=== PATIENT | female | born 2000 | race Caucasian/White ===

== ENCOUNTER 2020-07-29 10:05 | Inpatient (IN) | payer BC, OTHER ==
[2020-07-29] MEDS ORDERED: BUTORPHANOL 1 MG/ML INJ IV PRN (15:46)
[2020-07-29] MEDS ORDERED: METHYLERGONOVINE 0.2MG/ML AMP IM PRN (15:46)
[2020-07-29] MEDS ORDERED: Ringers Lactate 1,000 ML IV PRN (15:46)
[2020-07-29] MEDS ORDERED: PROMETHAZINE INJ 25 MG/ML AMP IM PRN (15:46)
[2020-07-29] MEDS ORDERED: CARBOPROST TROME 250 MCG/ML IM PRN (15:46)
[2020-07-29] MEDS ORDERED: miSOPROStoL 100 MCG TAB VAG PRN ×2 (15:52→19:00)
--- OUTSIDE RECORDS SUMMARY | 2020-07-29 15:54 | XMS REPORT | Continuity of Care Document ---
:[address] [facility] t Address [address] [place] [address] Care Team Providers Name Role Phone Kamron THOMAS Attending Clinician Problems This patient has no known problems. Allergies, Adverse Reactions, Alerts This patient has no known allergies or adverse reactions. Medications This patient has no known medications. Procedures This patient has no known procedures. Encounters Start End Encounter Admission Attending Care Care Encounter Source Date/Time Date/Time Type Type Clinicians Facility Department ID 2019-07-16 2019-07-16 Office OLAYINKA Lundy [id number] 16:43:13 17:13:02 Visit [facility] [id number] [place] [id number] Emmanuel [id number] [address] Office [address] Results This patient has no known results.
[2020-07-29] MEDS ORDERED: OXYTOCIN/LR 20 UNIT/1,000 ML BAG IV SCH (16:00)
[2020-07-29] MEDS ORDERED: Ringers Lactate 1,000 ML IV SCH (16:00)
[2020-07-29 16:23] LABS: Urine Appearance TURBID; Urine Bilirubin NEGATIVE (NEG); Urine Blood NEGATIVE (NEG); Urine Color DK YELLOW; Urine Glucose NEGATIVE (NEG); Urine Protein TRACE (NEG); Urine Specific Gravity >=1.030 (1.005-1.030)
[2020-07-29 16:30] LABS: Absolute Lymphocytes (CBC) 1.3 K/uL (0.7-4.9); Basophils % 0.2 % (0-1.3); Hematocrit 35.5 % (36.0-45.0); Lymphocytes % 11.5 % (15.3-44.8); MPV 9.6 fL (7.6-11.3); RBC Red Blood Cell Count 4.11 M/uL (3.86-4.86)
[2020-07-29 16:37] LABS: Urine Microscopic Reflex ORDER UMIC
[2020-07-29 16:48] LABS: Urine Bacteria LOADED /HPF (<20); Urine Culture Reflex Order REFLEXED; Urine RBC <5 /HPF (NONE SEEN)
[2020-07-29 17:13] VITALS: BMI 35.9
[2020-07-29] MEDS ORDERED: ZOLPIDEM TARTRATE 5 MG TABLET PO PRN (17:32)
--- NOTE | 2020-07-29 19:22 | RAD REPORT ---
EXAM DESCRIPTION: RAD - Abdomen 1 View (KUB) - 07/29/2020 7:09 pm CLINICAL HISTORY: presentation COMPARISON: No comparisons FINDINGS: Single portable KUB was obtained. Single gestation is identified in vertex presentation.
--- NOTE | 2020-07-29 21:06 | PREOPHP ---
Date of Admission: 07/29/2020 History Of Present Illness: A 20-year-old primigravida 39 weeks and 3 days, requesting Cytotec induc tion. This has been thoroughly discussed in the office. She knows with an unfavorable cervix even w ith Cytotec, the chance for is higher than if she had a more favorable cervix, but the patie nt wishes to proceed at this time. Full labor talk given. Full Cytotec talk given. Family History: Shows a grandfather with hypertension, maternal grandfather with a heart attack. No other significant family history. Allergies: THE PATIENT HAS NO ALLERGIES. Past Surgical History: She has had her wisdom teeth removed. Social History: She does not smoke. Physical Examination: HEENT: Clear. Pupils equal, round, and reactive to light and accommodation. Conjunctivae well perf used. No oral, lingual, or buccal lesions. Chest and Lungs: Clear. Heart: Without murmurs, thrills, heaves, or rubs. Breasts: Not examined. Abdomen: Term. Pelvis: Baby is vertex -1 to -2 station. Cervix is only fingertip, 40% to 50% effaced, still briquetter operator ior. Extremities: Clear without edema, cyanosis, or clubbing. She is Rh positive, immune to Rubella. Negative beta-strep screen. COVID status pending. Cytotec 5 0 mcg inserted. We will insert every 6 hours for three half tablet doses and then Pitocin augmentation beginning probably tomorrow. MARILU/KYRA Voice ID: [id number]
[2020-07-30 04:02] LABS: RPR (Rapid Plasma Reagin) NON-REACT (NON-REACT)
[2020-07-30] MEDS ORDERED: FENTANYL/BUPIVACAINE/NS/PF 200 MCG/100 ML BAG EP PRN (13:29)
[2020-07-30] MEDS ORDERED: FENTANYL CITR 100 MCG/2 ML IV ONE (13:29)
[2020-07-30] MEDS ORDERED: BUPIVACAINE 0.25% PF 10 ML VIAL IV PRN (13:30)
[2020-07-30] MEDS ORDERED: ROPIVACAINE HCL 100 ML IV ONE (13:51)
[2020-07-30] MEDS ORDERED: METHYLERGONOVINE 0.2MG/ML AMP IM ONE (14:47)
[2020-07-30] MEDS ORDERED: CARBOPROST TROME 250 MCG/ML IM ONE (14:47)
[2020-07-30] MEDS ORDERED: LIDOCAINE 1% MPF 30 ML VIAL ONE (14:47)
[2020-07-30] MEDS ORDERED: ACETAMINOPHEN 500 MG TAB PO PRN (15:00)
[2020-07-30] MEDS ORDERED: Oxycodone HCl/Acetaminophen 1 TAB TAB PO PRN ×2 (15:00)
[2020-07-30] MEDS ORDERED: OXYTOCIN/LR 20 UNIT/1,000 ML BAG IV SCH (15:00)
[2020-07-30] MEDS ORDERED: BISACODYL 10 MG RECTAL SUPP PR PRN (15:00)
[2020-07-30] MEDS ORDERED: DIPHENHYDRAMINE 25 MG TAB/CAP PO PRN (15:00)
[2020-07-30] MEDS ORDERED: DOCUSATE NA/SENNA CONC 1 TAB PO PRN (15:00)
[2020-07-30] MEDS ORDERED: IBUPROFEN 600 MG TAB PO PRN (15:20)
--- NOTE | 2020-07-30 22:16 | PN ---
Kavita Monterroso has had 3 doses of 50 mcg Cytotec. Cervix is now 1.5 cm, 50% effaced. The baby is def initely vertex, is still at -2 station. FHTs are normal and reactive. Vital signs are all stable. We will start Pitocin. Her pain scale is 5/10 until we get rupture of membranes. She knows that we probably will not have rapid progress. Full discussion with patient and family. MARILU/KYRA Voice ID: [id number] Report ID: [id number]
[2020-07-31] MEDS ORDERED: Ringers Lactate 2,000 ML IV ONE (04:32)
--- NOTE | 2020-07-31 10:05 | DS ---
A 20-year-old primigravida, 39 weeks 3 days, had Cytotec 50 mcg inserted every 6 hours x3, then Pitoc in induction. Delivered spontaneously after a very short second stage of 15 minutes or less, 7 pound s 15 ounces female, Apgars 8 and 8. First-degree laceration x2, sutured with 2-0 chromic, 1 figure-o f-eight stitch on the 1 on the right, 5 to 6 running lock stitches on the left. Schultze delivery of the placenta, which inspected and noted to be intact and normal. 350 to 400 mL blood loss. Patient was given apparently 1 dose of Hemabate following the delivery, but overnight this lochia has been n ormal. Baby noted to have a nuchal cord loosely x2. Rh positive, immune to Rubella. Negative beta strep screen. , afebrile, ambulating, voiding, lochia is normal. Requests no analgesics o n dismissal. Tdap and flu shots offered. No post epidural problems. Rh positive, immune to Rubella . COVID negative. Final Diagnoses: Term intrauterine 39 weeks 3 days, Cytotec insertion, labor induction, va ginal delivery at 39 weeks and 4 days, epidural anesthesia. Nuchal cord x2 loosely. Mild hypotonic. Tdap and flu shots offered. MARILU/KYRA Voice ID: [id number] Report ID: [id number]
[2020-07-31 11:47] VITALS: BP 123/65; TEMP 97.3
[2020-07-31] MEDS ORDERED: INFLUENZA VACCINE (for 3y+) 0.5 ML DOSE IMVAC ONE ×2 (11:50→13:13)
[2020-08-03 02:21] LABS: HBsAG Nonreactive (Nonreactive)
--- NOTE | 2020-08-03 15:26 | DS ---
Date of Discharge: 07/31/2020 A 27-year-old 2, para 1, 39 weeks 3 days. Delivered of a term female, 6 pounds plus range. Apgars 9 and 9. Very small first-degree laceration sutured with 2-0 chromic under local infiltration , 4 running locked stitches of 3-0 chromic. Ceci delivered the placenta. Inspected and noted to be intact and normal. Less than 250 mL blood loss. Rh positive, immune to rubella. Negative beta strep screen. Positive COVID status. No symptoms whatsoever. ; afebrile, ambulating and voiding. Lochia is normal. Will be dismissed later today to report back to my office in 6 weeks for followup, to report any temperature elevation of 100 degrees or greater, severe pain, heavy bleeding , or any other type of abnormalities. Requests no analgesics on dismissal. She has had her Tdap essence t, will get flu shot before she leaves. Final Diagnoses: Term intrauterine 39 weeks 3 days, vaginal delivery, positive COVID statu s. Flu shot offered. MARILU/KYRA Voice ID: [id number] Report ID: [id number]
== END 2020-07-31 18:10 | disposition home or self-care (01) | DRG 807 ==
LOC: 2ND-WC 15:51
PROVIDERS: ADMIT Specialist; ATTEND Specialist
PROC: 10E0XZZ Delivery of Products of Conception, External Approach (ICD-10-PCS; principal; 2020-07-29)
PROC: 3E0P7VZ Introduction of Hormone into Female Reproductive, Via Natural or Artificial Opening (ICD-10-PCS; 2020-07-29)
PROC: 0HQ9XZZ Repair Perineum Skin, External Approach (ICD-10-PCS; 2020-07-29)
DX: O70.0 First degree perineal laceration during delivery (principal); Z37.0 Single live birth; O62.2 Other uterine inertia; Z3A.39 39 weeks gestation of pregnancy; Z20.828 Contact with and (suspected) exposure to other viral communicable diseases; Z23 Encounter for immunization
CPT/HCPCS: 36415; 74018; 81003; 81015; 85025; 86592; 86850; 86900; 86901; 87086; 87088; 87340; 90471; J0595; J2210; J2550; J2590; J2795; J3010; J7120; Q2035; U0003